=== PATIENT | female | born 1970 | race Caucasian/White ===

== ENCOUNTER 2022-11-15 06:45 | Outpatient (CLI) | payer OTHER, SELFPAY ==
--- NOTE | 2022-11-15 07:15 | CRLHL7_ITS ---
For Patients: As a result of the Century Cures Act, medical imaging exams and procedure reports are released immediately into your electronic medical record. You may view this report before your referring provider. If you have questions, please contact your health care provider. INDICATION: enlarged uterus COMPARISON: none TECHNIQUE: 2D packer scale and color Doppler images were acquired of the pelvis using a transabdominal and transvaginal approach. FINDINGS: Sonographic images demonstrate an enlarged size and mildly lobular outer contour of the uterus. Uterus measures 18.0 cm in length by 6.3 cm in AP diameter by 8.5 cm in transverse dimension. The myometrium has a diffusely heterogeneous echotexture. Multiple midline uterine fibroids are present which are intramural and submucosal, measuring 6.6 x 4.4 x 6.1 cm, 4.3 x 3.4 x 4.1 cm and 3.3 x 2.6 x 2.8 cm. The endometrial lining is displaced and measures 6 mm in composite thickness. The right ovary measures 2.8 x 2.3 x 2.5 cm in size and the left ovary measures 3.3 x 2.1 x 2.6 cm. The ovaries demonstrate normal arterial and venous blood flow on color Doppler analysis. There are no suspicious fluid collections within the cul-de-sac. IMPRESSION: Enlarged uterus with multiple fibroids measuring up to 6.6 cm. The fibroids are intramural and submucosal with displacement of the endometrium. Dictated by Akil Porter MD @ 11/15/2022 9:19:27 AM (Electronically Signed)
== END 2022-11-15 06:46 | disposition home or self-care (01) ==
PROVIDERS: Visit Provider Obstetrics & Gynecology
DX: N85.2 Hypertrophy of uterus (principal); D25.1 Intramural leiomyoma of uterus; D25.0 Submucous leiomyoma of uterus
CPT/HCPCS: 76830; 76856

== ENCOUNTER 2022-12-15 09:05 | Outpatient (CLI) | payer OTHER, SELFPAY | END 2022-12-15 09:06 | disposition home or self-care (01) | PROVIDERS: Visit Provider Family Medicine | DX: R73.9 Hyperglycemia, unspecified (principal) | CPT/HCPCS: 80053 ==

== ENCOUNTER 2022-12-20 16:36 | Inpatient (IN) | payer OTHER, SELFPAY ==
[2022-12-20] VITALS (24 sets, daily range): BP systolic 90–188; BP diastolic 62–113; PULSE 92–108; RESP 16–25; TEMP 36–37.5; O2SAT 83–99; BMI 49.6
--- NOTE | 2022-12-20 09:23 | P.PCN_ITS ---
Procedure Note Time Seen by Provider: 14:39 Date Seen: 12/20/22 Date of procedure: 12/20/22 Will [facility] bill your pro fee for this procedure?: Yes Procedure: DATE: 12/20/2022 REFERRING PHSICIAN/PROVIDER: Bandar Mast PREOPERATIVE DIAGNOSIS: 51-year-old with menometrorrhagia and enlarged uterus due to fibroids. POSTOPERATIVE DIAGNOSIS: Same. NAME OF PROCEDURE: Total abdominal hysterectomy. Bilateral salpingectomies. SURGEON: Swapna Matthew MD FLIGHT DYNAMICIST: Sade Moreau MD. ANESTHESIA: General endotracheal. TAPS block. COMPLICATIONS: Due to the patient's body habitus the surgical time was extended: total time = 3hr 35 minutes which is 1.5 - 2.0 longer than the usual time needed for an abdominal hysterectomy. ESTIMATED BLOOD LOSS: 300 ml URINE OUTPUT: 300 mL clear urine at the end of the procedure. IV FLUID: 1,500 mL DRAINS: Luo to gravity. FINDINGS: EUA: Uterine size is difficult to assess from pelvic and abdominal exam due to patient body habitus. BMI 49.7. On laparotomy: visualization was extremely challenging due to extensive abdominal organ adiposity. The uterus was 14-15 weeks size with a degenerated fundal, intramural fibroid and a posterior, lower uterine segment, intramural fibroid. Both tubes and ovaries appeared normal. The ureters were not visualized due to retroperitoneal adipose tissue. PROCEDURE: After obtaining informed consent, the patient was taken to the operating room where general anesthesia was obtained without difficulty. Prior to prepping and draping the patient, a TAPS block was placed by Dr. Jorje MDA. A pannus retractor /drape was placed. She was prepared and draped in the normal sterile fashion in the dorsal supine position. A Luo catheter was inserted sterilely into the bladder. A Pfannenstiel skin incision was made with a scalpel. This incision was carried down to the underlying layer of fascia with the Bovie. The fascia was incised in the midline and the incision extended laterally. The superior and inferior aspects of the fascial incision were grasped with Leigha clamps and the underlying rectus muscles dissected off sharply. The rectus muscles were in the midline. The underlying peritoneum was identified and entered bluntly. The peritoneal incision was extended in layers with Metzenbaum scissors. The patient was placed in some mild Trendelenburg positioning. The bowels were packed cephalad using 2 large moistened laparotomy sponges. The Slava O retractor was placed in the incision. This provided moderate visualization of the pelvis. The pelvis was inspected with the findings noted above. from the start of the procedure to placing the Slava, self- retaining retract took 37 minutes of time due to extra time needed to take down the patient's adipose tissue. In a typical procedure this would take 10-15 minutes. Tristen clamps were placed at the cornua bilaterally for traction. Neither ureter was identified due to excessive adipose tissue within the retroperitoneal space. Ureters could not even be palpated. The Left round ligament was doubly clamped with Leigha clamps, transected, and suture ligated with 0 Vicryl. The anterior leaf of the broad ligament was opened to the midline from the right side. Down to the level of the cervix. The left fallopian tube was elevated with [place] clamps. The fallopian tube was removed using the LigaSure dissecting forceps. The pedicles were formed starting at the fimbriated end of the tube and the tube was removed at the cornua. The left ovarian ligament was then isolated, clamped across with 2 Grace clamps, transected, and doubly suture ligated with 0 Vicryl. Hemostasis was observed. The uterine vessels were skeletonized on the left side. Attention was then turned to the right side of the uterus. The right round ligament was doubly clamped with Leigha clamps, transected and suture ligated with 0 Vicryl. The anterior leaf of the broad ligament was divided with bipolar cautery this was extended down to the level of the cervix. Attention was then turned to removing the right fallopian tube. The tube was grasped with [place] clamps. The LigaSure dissecting forceps was used to form sequential pedicles starting at the fimbriated, progressing toward the cornua. The tube was removed from the cornua.there were thick adhesions of the bladder reflection to the anterior wall of the lower uterine segment and cervix. The right ovarian ligament was isolated, clamped with 2 Grace clamps, transected and doubly suture ligated with 0 Vicryl suture. Hemostasis was noted. The uterine vessels were then skeletonized on the right side. the right uterine vessels were doubly clamped with curved and straight Grace clamps, transected and suture ligated with 0 Vicryl suture. There were additional small blood vessels within the peritoneum likely due to neovascularization from uterine fibroids, that were clamped with right angle clamps and suture ligated with 2-0 Vicryl. An additional curved Grace clamp was placed just inferior to the original uterine vessel pedicle to ligate all of the uterine blood vessels. The left uterine vessels were doubly clamped across with curved and straight Grace clamps, transected, and suture ligated. Excellent hemostasis was obtained. At this point the enlarged uterus was removed from the cervix using bipolar cautery to promote better visualization of the pelvis and cervix. The remaining cervical stump was grasped with 2 Leigha clamps. The bladder was dissected off with a combination of sharp dissection with a Metzenbaum scissors and blunt dissection with a sponge stick. There was significant bleeding noted from vaginal perforating blood vessels that were extremely difficult to identify due to the depth of the pelvis. No pulsing vessels were able to be identified. The area was cauterized with the Bovie and Gelfoam placed which slowed the bleeding. The remaining cardinal and uterosacral ligament attachments on both sides were clamped with straight Grace clamps adjacent to the lower uterine segment and cervix, transected and suture ligated with 0 Vicryl. Excellent hemostasis was obtained. Two Grace clamps were placed across the vaginal cuff angles. The uterus with attached cervix was then transected and passed off the field. The vaginal cuff angles were fixed with Grace stitches of 0 Vicryl. The intervening vaginal cuff was closed with [id number] sutures of 0 Vicryl. Was very difficult to identify the vaginal cuff due to the depth of the pelvis secondary to patient body habitus.The abdomen and pelvis were then copiously irrigated. Small bleeding vessels were isolated with DeBakey clamps and cauterized for hemostasis. there were was continued oozing from the anterior aspect of the vaginal canal between the the reflection and the vagina. This bleeding was suspicious for venous oozing due to dissection of adhesions during the hysterectomy to safely remove the cervix without damaging the bladder. This area was cauterized with bipolar cautery and Gelfoam soaked in bovine thrombin was then applied between the bladder and vagina. Hemostasis was noted after 5 minutes of holding pressure. Mani was then applied. All laparotomy sponges and instruments were then removed. The subfascial tissues were carefully inspected and hemostasis assured. The fascia was re-approximated in a running fashion with a looped 0 Maxon suture. The subcutaneous tissues were copiously irrigated and hemostasis obtained with bipolar cautery. The subcutaneous adipose layer was re-approximated in 4 layers using 3-0 plain gut interrupted sutures. This required 6 plain gut sutures. The skin was closed in a subcuticular fashion with 4-0 Monocryl. A silver dressing was applied. The patient tolerated the procedure well. Sponge, lap, needle, instrument counts were reported as correct x2. The patient was taken to recovery room awake and in stable condition. She received 3 g of IV Ancef preoperatively. The uterus was weighed at the conclusion of the procedure, weight was 287 g in the operating room. PATHOLOGY SPECIMEN(S): Uterus, cervix, bilateral fallopian tubes. Prior to hysterectomy the patient received 3gm IV Ancef. Time spent operatin hours 35 minutes for the hysterectomy. Anesthesia: GETA Pathology: specimen obtained, sent to pathology Condition: stable Disposition: floor
[2022-12-20 10:01] LABS: Hemoglobin* 13.7 gm/dL (12.0-16.0)
[2022-12-20 10:18] LABS: Creatinine* 0.7 mg/dL (0.5-1.5); Est. Creatinine Clearance* 83.95; Estimated Glomerular Filt Rate 106 ml/min
[2022-12-20 10:20] LABS: HCG Qualitative Serum* Negative (Negative)
[2022-12-20] MEDS: CEFAZOLIN 1 GM inj 3 GM IVP (10:40)
--- NOTE | 2022-12-20 11:44 | P.NB_ITS ---
Nerve Block Nerve Block Time Seen by Provider: 10:34 Date Seen: 12/20/22 Type of block requested by surgeon for post-operative analgesia: TAP Side: bilateral Time out performed: Yes Verification of patient name: Yes Verification of date of : Yes Site marking: site marked Name of person performing procedure: Jorje Continuous monitoring Was continuous monitoring of O2 sat, B/P, environmental monitoring specialist, recorded every 15 minutes?: Yes Procedure Checklist: sterile prep, needles and gloves Ultrasound guided. Images saved: Yes Medications given in 5ml increments after negative aspiration: Marcaine %: 0.25 mL: 30 Needle gauge: 20 and Exparel mL: 10 Patient tolerated procedure well: Yes Additional comments: Needle noted adjacent to nerve Block Charges Block Charge (with Pro Fee): TAP Bilateral Use of Ultrasound Machine for Block: Yes- US Guidance/pain block
--- NOTE | 2022-12-20 11:44 | W.ANESCHARGE ---
Anesthesia Charges Start Date/Time Anesthesia Start Date: 12/20/22 Anesthesia Start Time: 10:21 Stop Date/Time Anesthesia Stop Date: 12/20/22 Anesthesia Stop Time: 14:51
--- NOTE | 2022-12-20 11:53 | SUR.OPER ---
PATIENT QUESTIONS ANSWERED SATISFACTORILY PREOPERATIVELY. PATIENT BROUGHT TO OR #4 PER CART. Patient positioned supine on OR #4 bed for the intubation. Pt. then moved into the lithotomy position for the procedure. Perioperative team padded and tucked the arms at pt. side w/ sleds. ? Final approval of positioning by surgeon.
[2022-12-20] MEDS: THROMBIN (BOVINE) 5,000 UNIT VIAL 5000 UNIT TOPICAL (13:46)
[2022-12-20] MEDS: LACTATED RINGERS 1000 ML 1,000 ML 100 ML IV ×2 (13:46→13:50)
--- NOTE | 2022-12-20 14:17 | P.GYNPRC_ITS ---
Procedure Note Date Seen: 12/20/22 Procedure Details: PREOPERATIVE DIAGNOSIS: 51-year-old with menometrorrhagia and enlarged uterus due to fibroids. Morbid obesity. POSTOPERATIVE DIAGNOSIS: same PROCEDURE: Total laparoscopic hysterectomy. Bilateral salpingectomies.. SURGEON: Vipul. STRUCTURAL WORKER: Prieto ANESTHESIA: General endotracheal COMPLICATIONS: None ESTIMATED BLOOD LOSS: See operative report by Dr. Matthew. FINDINGS: Enlarged myomatous uterus, weight 287 g. Normal appearing tubes and ovaries bilaterally. PROCEDURE NOTE: Please see the operative report by Dr. Matthew for full details of the procedure. I was asked to assist. I was scrubbed in for the entire procedure until closure of the abdominal skin incision. I provided assistance with visualization and retraction, and with the hysterectomy and bilateral salpingectomies from the right side, as well as with hemostasis and closure of the vaginal cuff and fascia. This case was technically difficult and took additional time secondary to patient body habitus.
--- NOTE | 2022-12-20 14:48 | W.ANESCHARGE ---
Anesthesia Charges Start Date/Time Anesthesia Start Date: 12/20/22 Anesthesia Start Time: 10:21 Stop Date/Time Anesthesia Stop Date: 12/20/22 Anesthesia Stop Time: 14:51
[2022-12-20] MEDS: HYDROmorphone 0.5 mg/0.5 ml inj IVP ×3 (15:12→18:51)
[2022-12-20] MEDS: KETAMINE HCL 100 MG/ML inj 20 MG IV (15:20)
[2022-12-20] MEDS: fentaNYL 100 MCG/2 ML inj 50 MCG IVP ×3 (15:37→15:49)
--- NOTE | 2022-12-20 15:54 | SUR.PHASEI ---
Assessment completed by Robert Barroso, MUSEUM EDUCATOR verbal given to administer third dose of Fentanyl. MUSEUM EDUCATOR visited with patient education provided on importance of maintaining airway while still being able to treat pain. Approved transfer to center to continue recovery.
[2022-12-20] MEDS: LORazepam 2 MG/ML inj IVP (16:25)
[2022-12-20] MEDS: CYCLOBENZAPRINE HCL 10 MG TABLET PO (17:26)
--- NOTE | 2022-12-20 19:35 | PC.NURSE ---
Nursing Care Notes: [id number] Pt this shift arrived from OB unit after totally hysterectomy. Pt has no c/o pain abd, but 8/10 in R lateral shoulder, treated per eMAR. Moderate pain in left shoulder and back of neck. explained to pt about CO2 gases causes back strap pain. Pt states it feels more muscular than air. Massaged R shoulder and pt expressed relief with massage stating thats it, your hitting the spot. Worked on deep breathing with prolonged expiration to aid in relaxation. Tolerating fluids, no N/V. IV patent, Luo patent. Abdomen dressing CDI.
[2022-12-20] MEDS: ENOXAPARIN 40 MG/0.4 ML INJ SUBCUT (20:03)
[2022-12-20] MEDS: KETOROLAC 30 MG/ML inj IVP (20:03)
[2022-12-20] MEDS: BUDESONIDE 0.5 MG/2ML NEB NEB (20:04)
[2022-12-20] MEDS: SODIUM CHLORIDE 0.9 % (FLUSH) 10 ML SYRINGE IVF (20:05)
[2022-12-21] VITALS (7 sets, daily range): BP systolic 131–179; BP diastolic 78–103; PULSE 100–116; RESP 14–20; TEMP 36–36.5; O2SAT 95–98
[2022-12-21] MEDS: OXYCODONE 5 MG TABLET PO ×4 (00:05→21:30)
[2022-12-21] MEDS: SODIUM CHLORIDE 0.9 % (FLUSH) 10 ML SYRINGE IVF ×2 (00:06→02:00)
[2022-12-21] MEDS: LORazepam 2 MG/ML inj IVP (00:06)
[2022-12-21] MEDS: KETOROLAC 30 MG/ML inj IVP ×3 (01:59→15:26)
[2022-12-21 05:31] LABS: Hemoglobin* 13.7 gm/dL (12.0-16.0)
[2022-12-21] MEDS: ACETAMINOPHEN 325 MG TABLET 1000 MG PO (05:40)
--- NOTE | 2022-12-21 06:01 | PC.NURSE ---
Addendum entered by Bhargavi Park RN 12/22/22 15:17: Correction Dressing is a silver lined dressing! dressing C/D/I Original Note: [id number] Pt very tearful majority of shift, c/o R shoulder/arm pain, minimal relief with pain medications, encouraged patient to ambulate halls and educated on cause of this pain. Pt was able to sleep on and off during night, using home cpap. denies pain to abdomen, dressing with drainage noted throughout entire dressing, reinforcement not needed, remained intact. Luo removed at 0500, tip intact, pt tolerated well, she then ambulated the halls for the second time this shift. Pt is tolerating ambulating very well. Pt needs encouragement and reassurance, receptive to therapeutic communication. No vaginal bleeding observed. denies N/V and tolerating oral intake. pt tachy during vital checks, denies chest pain, lightheaded or dizziness.
[2022-12-21] MEDS: OMEPRAZOLE 20 MG CAPSULE DR 40 MG PO (06:19)
[2022-12-21] MEDS: BUDESONIDE 0.5 MG/2ML NEB NEB ×2 (09:03→21:32)
[2022-12-21] MEDS: hydroCHLOROthiazide 25 MG TABLET PO (09:03)
[2022-12-21] MEDS: LOSARTAN POTASSIUM 50 MG TABLET 25 MG PO (09:03)
--- NOTE | 2022-12-21 09:24 | P.GYNPN_ITS ---
DUST MOP MAKER - A/P Postoperative Procedures: Procedures Operation Date: 12/20/22 10:10 Actual Procedure Side Surgeon p Total Abdominal Hysterectomy, Bilateral Salpingectomy Swapna Matthew MD Postoperative day: 1 Postoperative status: doing well Postoperative plan: routine post-op care, ambulate, advance diet and other (Continue prophylactic Lovenox while in hospital. Continue to monitor blood pressure.) Time Spent With Patient Time: Total time spent is greater than 50% in coordination of care (as documented) at patient's floor/unit and/or counseling patient: Time with patient: 25 - 35 minutes DUST MOP MAKER- PN:Subj Post-Op Subjective Time Seen by Provider: 08:30 Date Seen: 12/21/22 Post Operative Details: Post-operative day number 1: status post total abdominal hysterectomy with bilateral salpingectomies Subjective: patient reports feeling better (Had some bilateral upper arm pain overnight), pain is well controlled and ambulating well DUST MOP MAKER-PN: Obj Exam Physical Exam: Vital signs: Temp Pulse Resp BP Pulse Ox O2 Del Method O2 Flow Rate 96.8 F L 115 H 18 179/99 H 97 Room Air, CPAP 0 12/21/22 03:00 12/21/22 03:00 12/21/22 03:00 12/21/22 03:00 12/21/22 03:00 12/21/22 03:00 12/21/22 03:00 Constitutional: Constitutional: no acute distress and morbidly obese Routine HEENT Exam: Head: Present normal inspection Routine Respiratory Exam: Respiratory: Absent respiratory distress Routine Abdominal Exam: Abdominal: Present soft; Absent tenderness Comments: Incision bandaged with silver Mepilex dressing. Routine Extremities Exam: Extremities: Present normal inspection Urinary Catheter Management: Urethral: Cath placed during this visit: yes, but has since been removed by the nurse Urethral indwelling: No Reason for continuing: surgical procedure Insertion date: 12/20/22 Removal date: 12/21/22 Removal time: 06:05 DUST MOP MAKER - PN: Obj Data Labs Labs: Laboratory Results - last 24 hr 12/20/22 12/21/22 09:52 05:25 Hgb 13.7 13.7 Creatinine 0.7 Estimated Creat Clear 83.95 Estimated GFR 106 HCG, Qual Negative Blood Type B Positive Antibody Screen NEGATIVE
--- NOTE | 2022-12-21 10:20 | P.IMCN_ITS ---
Date of Consult Patient: [facility] Patient Consult date: 12/21/22 Primary Care Provider: Swapna Matthew MD Consult Narrative Reason for consult: Medical management of comorbidities Narrative: Marita Rai is a 51 year old female who presented to the hospital on 12/20 for an elective abdominal hysterectomy with area manager for menorrhagia. There were no surgical or anesthetic complications noted during procedure. This morning, she notes feeling weak in bilateral upper extremities; no other concerns for hospitalist team. Marita's PCP is Dr. Checo Allen at [facility]. Past medical history significant for: long-COVID, mild intermittent asthma, essential HTN, peripheral neuropathy, GERD, chronic antibiotic use for recurrent breast infections History of blood clots: Yes, PE in 2019 (when she had COVID) Patient lives with and daughter. 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 Nonsmoker, no concerning ETOH use. Review of Systems Status of ROS: Reports: 10 or more systems reviewed and unremarkable except as noted in History and below [facility] Medical History (Updated 12/21/22 @ 15:31 by Yaima Jacinto MD) Anxiety (04/15/09) ?F41.9 - Anxiety disorder, unspecified (ICD-10) Asthma (04/15/09) ?J45.909 - Unspecified asthma, uncomplicated (ICD-10) Back pain ?M54.9 - Dorsalgia, unspecified (ICD-10) BMI 50.0-59.9, adult ?Z68.43 - Body mass index [BMI] 50.0-59.9, adult (ICD-10) Breast infection in female ?N61.0 - Mastitis without abscess (ICD-10) Chronic sinusitis ?J32.9 - Chronic sinusitis, unspecified (ICD-10) COVID-19 [place] manifesting chronic fatigue (06/2020) ?G93.32 - Myalgic encephalomyelitis/chronic fatigue syndrome (ICD-10) ?U09.9 - Post covid-19 condition, unspecified (ICD-10) Environmental allergies ?Z91.09 - Other allergy status, other than to drugs and biological substances (ICD-10) Fibroids ?D21.9 - Benign neoplasm of connective and other soft tissue, unspecified (ICD-10) GERD (gastroesophageal reflux disease) ?K21.9 - Gastro-esophageal reflux disease without esophagitis (ICD-10) Heel lesion ?L98.9 - Disorder of the skin and subcutaneous tissue, unspecified (ICD-10) Hypertension (06/19/13) ?I10 - Essential (primary) hypertension (ICD-10) Irritable bowel syndrome with diarrhea ?K58.0 - Irritable bowel syndrome with diarrhea (ICD-10) IUD (intrauterine device) in place ?Z97.5 - Presence of (intrauterine) contraceptive device (ICD-10) Menorrhagia with regular cycle ?N92.0 - Excessive and frequent menstruation with regular cycle (ICD-10) Peripheral neuropathy ?G62.9 - Polyneuropathy, unspecified (ICD-10) Pulmonary embolism (06/2020) ?I26.99 - Other pulmonary embolism without acute cor pulmonale (ICD-10) Sleep apnea ?G47.30 - Sleep apnea, unspecified (ICD-10) Surgical History (Updated 12/14/22 @ 14:58 by Gina Osuna) History of evacuation of hematoma (07/08/20) ?Z98.890 - Other specified postprocedural states (ICD-10) Hx of bilateral breast reduction surgery (2001) ?Z98.890 - Other specified postprocedural states (ICD-10) Status post delivery (2003) ?Z98.891 - History of uterine scar from previous surgery (ICD-10) Family History (Updated 12/15/22 @ 09:34 by Marian Fischer MD) Father Diabetes Heart valve problem, Onset Age: 65 Aunt Ovarian cancer Paternal Grandmother Stroke Diabetes Daughter Asthma Sister Asthma Social History (Updated 12/15/22 @ 09:35 by Marian Fischer MD) Narrative: , 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 Spouse/Partner: [name] Education: [] Occupation: currently unemployed, was a teacher Tobacco: lifetime nonsmoker E-cigarettes: no Alcohol: no Illicit/recreational drugs: no Safety concerns at home or work: no Dietary restriction(s): None Exercise: Has just started walking and using an elliptical machine in the last week as she was just okayed to start exercising by her [employer] team. Smoking Status: Never smoker Meds Home Medications and Allergies Home Medications Medication Instructions Recorded Confirmed Type albuterol 90 mcg/actuation aerosol 2 spray inhalation PRN 04/20/22 12/15/22 History inhaler hydrochlorothiazide 25 mg tablet 25 mg PO DAILY 04/20/22 12/15/22 History levonorgestrel 21 mcg/24 hours (8 1 device intrauterine ONCE 04/20/22 12/15/22 History yrs) 52 mg intrauterine device losartan 25 mg tablet 25 mg PO QDAY 04/20/22 12/15/22 History montelukast 10 mg tablet 10 mg PO .Bedtime 04/20/22 12/15/22 History nystatin 100,000 unit/gram topical 1 topical .2-3X/Day as needed PRN 04/20/22 12/15/22 History powder pantoprazole 40 mg tablet,delayed 40 mg PO QDAY 04/20/22 12/15/22 History release penicillin V potassium 500 mg 500 mg PO BID 04/20/22 12/15/22 History tablet budesonide 0.5 mg/2 mL suspension 0.5 mg inhalation BID 12/05/22 12/15/22 History for nebulization (Pulmicort) Bifidobacterium infantis 4 mg 4 mg PO QDAY 12/15/22 12/15/22 History capsule (Align) cholecalciferol (vitamin D3) 25 25 mcg PO QDAY 12/15/22 12/15/22 History mcg (1,000 unit) capsule clotrimazole 1 % topical cream 1 applic topical BID 12/15/22 12/15/22 History fexofenadine 60 mg tablet (Irish 60 mg PO BID 12/15/22 12/15/22 History Allergy) Allergies Allergy/AdvReac Type Severity Reaction Status Date / Time No Known Drug Allergies Allergy Verified 12/20/22 15:08 Exam Narrative: Exam Narrative: GEN: Alert and oriented, sitting comfortably in bedside chair HEENT: Normal external ears, EOMIs bilaterally, no scleral icterus CV: RRR, No concerning murmurs R: LCTA bilaterally without concerning wheezing, air movement adequate Ext: wwp, trace edema bilateral lower extremities, normal peripheral pulses bilateral upper extremities, normal wire taper strength and symmetric movement of bilateral upper extremities Skin: No concerning skin lesions or rashes on exposed skin Neuro: No focal deficits, no resting tremor, gait not observed Psych: Appropriate Const: Vital Signs, click to edit/add: Vital Signs - 24 hr 12/20/22 14:43 12/20/22 15:10 12/20/22 14:45 Temperature 99.5 F Pulse Rate 106 H 100 103 H Pulse Rate [Right Pulse Oximeter] Respiratory Rate 25 H 16 25 H Blood Pressure 115/62 143/80 H 101/64 Blood Pressure [Le ft Arm] Pulse Oximetry 97 99 98 Oxygen Delivery Me thod OxyMask OxyMask Oxygen Flow Rate 10 6 12/20/22 14:50 12/20/22 14:55 12/20/22 15:00 Temperature Pulse Rate 101 H 103 H 98 Pulse Rate [Right Pulse Oximeter] Respiratory Rate 25 H 24 16 Blood Pressure 99/73 90/70 124/95 H Blood Pressure [Le ft Arm] Pulse Oximetry 98 99 99 Oxygen Delivery Me thod OxyMask Oxygen Flow Rate 10 12/20/22 15:05 12/20/22 15:15 12/20/22 15:23 Temperature Pulse Rate 101 H 101 H 100 Pulse Rate [Right Pulse Oximeter] Respiratory Rate 16 20 20 Blood Pressure 145/98 H 139/74 139/98 H Blood Pressure [Le ft Arm] Pulse Oximetry 99 99 99 Oxygen Delivery Me thod OxyMask Room Air Oxygen Flow Rate 6 12/20/22 15:37 12/20/22 15:46 12/20/22 16:07 Temperature 99.4 F Pulse Rate 103 H 98 101 H Pulse Rate [Right Pulse Oximeter] Respiratory Rate 20 20 16 Blood Pressure 154/95 H 155/97 H Blood Pressure [Le ft Arm] 134/82 Pulse Oximetry 99 99 Oxygen Delivery Me thod Room Air Room Air Room Air Oxygen Flow Rate 6 12/20/22 16:07 12/20/22 16:22 12/20/22 16:37 Temperature Pulse Rate Pulse Rate [Right Pulse Oximeter] 101 H 99 99 Respiratory Rate 16 16 16 Blood Pressure Blood Pressure [Le ft Arm] 134/82 130/83 138/82 Pulse Oximetry 83 L 88 94 Oxygen Delivery Me thod Room Air Room Air Room Air Oxygen Flow Rate 2 1 12/20/22 16:52 12/20/22 17:07 12/20/22 17:15 Temperature Pulse Rate Pulse Rate [Right Pulse Oximeter] 101 H 103 H 102 H Respiratory Rate 18 18 18 Blood Pressure Blood Pressure [Le ft Arm] 142/85 H 149/94 H 135/84 Pulse Oximetry 96 98 97 Oxygen Delivery Me thod Room Air Room Air Room Air Oxygen Flow Rate 1 1 1 12/20/22 17:45 12/20/22 16:16 12/20/22 18:00 Temperature 98.3 F Pulse Rate Pulse Rate [Right Pulse Oximeter] 106 H 104 H Respiratory Rate 18 20 20 Blood Pressure Blood Pressure [Le ft Arm] 151/81 H 188/113 H Pulse Oximetry 97 97 97 Oxygen Delivery Me thod Room Air Room Air Room Air Oxygen Flow Rate 1 12/20/22 19:00 12/20/22 22:32 12/20/22 22:34 Temperature 97.8 F 96.8 F L Pulse Rate Pulse Rate [Right Pulse Oximeter] 102 H 108 H Respiratory Rate 20 18 18 Blood Pressure Blood Pressure [Le ft Arm] 148/106 H 146/91 H Pulse Oximetry 92 95 95 Oxygen Delivery Me thod Room Air Room Air CPAP Room Air CPAP Oxygen Flow Rate 0 12/21/22 03:00 12/21/22 07:48 12/21/22 07:48 Temperature 96.8 F L 97.7 F Pulse Rate Pulse Rate [Right Pulse Oximeter] 115 H 100 Respiratory Rate 18 20 20 Blood Pressure Blood Pressure [Le ft Arm] 179/99 H 131/89 Pulse Oximetry 97 97 97 Oxygen Delivery Me thod Room Air CPAP Room Air Room Air Oxygen Flow Rate 0 Labs Labs: Short CBC 12/21/22 Range/Units 05:25 Hgb 13.7 (12.0-16.0) gm/dL BMP 12/20/22 09:52 Creatinine 0.7 Assessment and Plan Assessment and plan (1) Upper extremity weakness: Problem comment: - ddx includes peripheral neuropathy, potential cervical source (placement from surgery), atypical rhabdo - elevated LFTs, likely not related, CK pending - exam reassuring - continued re-examination and follow-up - physical therapy evaluation ordered Status: Acute (2) Mild persistent asthma: Problem comment: - follows with pulmonology as an outpatient, no evidence of acute exacerbation at this time Status: Acute (3) Elevated LFTs: Problem comment: - noted on 12/21 labs. Unclear source, no abdominal pain, normal LFTs 6 days ago - Marita endorses a history of fatty liver disease, still has her gallbladder - abdominal ultrasound ordered to evaluate, follow LFTs Status: Acute (4) GERD (gastroesophageal reflux disease): Problem comment: Uses pantoprazole twice a day Status: Chronic (5) Peripheral neuropathy: Problem comment: Due to COVID Status: Chronic (6) Environmental allergies: Problem comment: Animal Dander uses Irish twice a day Status: Chronic (7) Pulmonary embolism: Problem comment: Complication from COVID2019 Status: Acute Plan - pain control and dispo management per Gynecologic surgery team - continue home medications - follow LFTs - continue Lovenox and SCDs for prophylaxis
[2022-12-21 12:18] LABS: Alanine Aminotransferase* 115 U/L (4-35); Albumin* 3.4 g/dL (3.3-5.0); Aspartate Amino Transferase* 618 U/L (12-35); Bilirubin Direct* 0.5 mg/dL (0.0-0.5); Total Protein* 6.5 g/dL (6.0-8.3)
[2022-12-21 12:19] LABS: Alkaline Phosphatase* 46 U/L (40-150); Magnesium* 1.9 mg/dL (1.5-2.6)
[2022-12-21 12:32] LABS: Blood Urea Nitrogen* 13 mg/dL (5-24); Calcium* 8.3 mg/dL (8.4-10.6); Carbon Dioxide* 23 mmol/L (20-32); Chloride* 102 mmol/L (96-114); Creatinine* 0.6 mg/dL (0.5-1.5); Est. Creatinine Clearance* 97.94; Estimated Glomerular Filt Rate 110 ml/min; Glucose* 119 mg/dL (60-115); Potassium* 4.5 mmol/L (3.6-5.1); Sodium* 131 mmol/L (135-149)
--- NOTE | 2022-12-21 13:30 | CRLHL7_ITS ---
For Patients: As a result of the Century Cures Act, medical imaging exams and procedure reports are released immediately into your electronic medical record. You may view this report before your referring provider. If you have questions, please contact your health care provider. Indication: Elevated liver function tests. Technique: Sonography of the abdomen was performed as above. Comparison: No prior relevant studies Findings: Substantially limited study due to patient related soft tissue attenuation factors and inability to position properly. The liver is echogenic with decreased sound through transmission probably due to fatty infiltration. Gallbladder wall thickness is top normal at 3 millimeters. Probable sludge but no calculi or pericholecystic fluid. No sonographic Power`s sign Bile duct is of top normal caliber at 7 millimeters. Poorly visualized. Pancreas not visualized Right kidney not visualized. Aorta not visualized. IVC not visualized. Impression: 1. Substantially limited study as above 2. Abnormal hepatic echogenicity probably due to steatosis 3. Limited visualization of the gallbladder. Probable sludge but no calculi, wall thickening or pericholecystic fluid. 4. Poorly seen bile duct but top normal size at 7 millimeters as visualized 5. Nonvisualization of the pancreas, right kidney, aorta and IVC due to technical factors Dictated by George Bardales MD @ 12/21/2022 3:04:15 PM (Electronically Signed)
[2022-12-21 15:39] LABS: Basophils Percent Auto 0.1 % (0.0-3.0); Eosinophils Percent Auto 0.2 % (0.0-7.0); Hematocrit 40.2 % (33.0-51.0); Hemoglobin* 13.1 gm/dL (12.0-16.0); Immature Granulocytes Pct Auto 0.2 %; Lymphocytes Percent Auto 13.3 % (20-44); Mean Corpuscular HGB Conc 33 gm/dL (32-36); Mean Corpuscular Hemoglobin 30 pg (26-34); Mean Corpuscular Volume 91 fL (80-100); Monocytes Percent Auto 6.5 % (0.0-11.0); Neutrophils Percent Auto 79.7 % (42.0-72.0); Platelet Count* 317 K/uL (140-440); RDW Coefficient of Variation % 13.6 % (11.5-15.5); Red Blood Count 4.42 m/uL (4.00-5.20); White Blood Count* 12.14 K/uL (4.50-11.00)
[2022-12-21 15:51] LABS: Slide Review Reflex No
--- NOTE | 2022-12-21 17:03 | PC.NURSE ---
Pt calm and cooperative during shift. Pt had pain in arms ranging from 7-6.5. Pt encouraged to walk halls and move arms as able. Pt walked halls x 2 during shift. See EMAR for pharmacological interventions. Pt?s dressing is dry and intact. Pt independent with walking. At times Pt needs help getting footrest in chair down or closer to edge of chair/bed to stand up.? ?
--- NOTE | 2022-12-21 18:42 | PC.NURSE ---
Pt started passing gas around 1800 during shift.
[2022-12-21 18:46] LABS: Creatine Kinase* 37960 U/L (41-117)
[2022-12-21] MEDS: IBUPROFEN 600 MG TABLET PO (21:29)
[2022-12-21] MEDS: ENOXAPARIN 40 MG/0.4 ML INJ SUBCUT (21:31)
[2022-12-21] MEDS: SIMETHICONE 80 MG TAB.CHEW 160 MG PO (21:51)
[2022-12-21] MEDS: ZOLPIDEM 5 MG TABLET PO (21:51)
[2022-12-22] MEDS: ACETAMINOPHEN 325 MG TABLET 1000 MG PO ×3 (01:34→16:24)
[2022-12-22] MEDS: OXYCODONE 5 MG TABLET PO ×2 (01:36→16:25)
[2022-12-22 03:00] VITALS: BP 143/81; PULSE 102; RESP 18; TEMP 36.3; O2SAT 93
[2022-12-22 05:49] LABS: Basophils Absolute Auto 0.04 K/uL (0.00-0.30); Basophils Percent Auto 0.4 % (0.0-3.0); Eosinophils Absolute Auto 0.06 K/uL (0.00-0.50); Eosinophils Percent Auto 0.6 % (0.0-7.0); Hematocrit 34.8 % (33.0-51.0); Hemoglobin* 11.5 gm/dL (12.0-16.0); Immature Granulocytes Abs Auto 0.01 K/uL (0.00-0.30); Immature Granulocytes Pct Auto 0.1 %; Lymphocytes Percent Auto 24.1 % (20-44); Mean Corpuscular HGB Conc 33 gm/dL (32-36); Mean Corpuscular Hemoglobin 30 pg (26-34); Mean Corpuscular Volume 91 fL (80-100); Monocytes Percent Auto 7.5 % (0.0-11.0); Neutrophils Absolute Auto 6.69 K/uL (1.7-7.0); Neutrophils Percent Auto 67.3 % (42.0-72.0); Platelet Count* 279 K/uL (140-440); RDW Coefficient of Variation % 13.7 % (11.5-15.5); Red Blood Count 3.83 m/uL (4.00-5.20); White Blood Count* 9.95 K/uL (4.50-11.00)
[2022-12-22 06:03] LABS: Slide Review Reflex No
[2022-12-22] MEDS: CYCLOBENZAPRINE HCL 10 MG TABLET PO ×2 (06:07→20:31)
[2022-12-22] MEDS: IBUPROFEN 600 MG TABLET PO ×4 (06:07→20:50)
[2022-12-22 06:16] LABS: Chloride* 98 mmol/L (96-114)
[2022-12-22 06:17] LABS: Albumin* 3.1 g/dL (3.3-5.0); Potassium* 3.2 mmol/L (3.6-5.1); Sodium* 133 mmol/L (135-149)
[2022-12-22 06:19] LABS: Creatinine* 0.7 mg/dL (0.5-1.5); Est. Creatinine Clearance* 83.95; Estimated Glomerular Filt Rate 106 ml/min
[2022-12-22 06:20] LABS: Alanine Aminotransferase* 106 U/L (4-35); Alkaline Phosphatase* 57 U/L (40-150); Aspartate Amino Transferase* 394 U/L (12-35); Bilirubin Direct* 0.2 mg/dL (0.0-0.5); Bilirubin Total* 0.5 mg/dL (0.1-1.5); Blood Urea Nitrogen* 11 mg/dL (5-24); Calcium* 7.5 mg/dL (8.4-10.6); Carbon Dioxide* 35 mmol/L (20-32); Glucose* 125 mg/dL (60-115); Total Protein* 6.1 g/dL (6.0-8.3)
[2022-12-22 07:03] LABS: Creatine Kinase* 22281 U/L (41-117)
[2022-12-22] MEDS: OMEPRAZOLE 20 MG CAPSULE DR 40 MG PO (07:22)
[2022-12-22 07:30] VITALS: BP 144/83; PULSE 93; RESP 18; TEMP 36.1; O2SAT 91
[2022-12-22] MEDS: 0.9 % SODIUM CHLORIDE 500 ML 500 ML IV (07:33)
[2022-12-22] MEDS: LOSARTAN POTASSIUM 50 MG TABLET 25 MG PO (08:33)
[2022-12-22] MEDS: hydroCHLOROthiazide 25 MG TABLET PO (08:33)
[2022-12-22] MEDS: 0.9 % SODIUM CHLORIDE 1000 ml 1,000 ML 125 ML IV ×2 (08:34→18:32)
[2022-12-22] MEDS: BUDESONIDE 0.5 MG/2ML NEB NEB ×2 (09:31→20:31)
[2022-12-22 11:00] VITALS: BP 115/70; PULSE 100; RESP 12; TEMP 36.6; O2SAT 93
[2022-12-22] MEDS: POTASSIUM CHLORIDE 10 MEQ CAPSULE ER 20 MEQ PO (12:12)
[2022-12-22] MEDS: CALCIUM GLUC 1,000MG/50 ML 1,000 MG/50 ML BAG 100 MG IVPB (12:12)
--- NOTE | 2022-12-22 12:16 | P.DS_ITS ---
Documented by User: Swapna Matthew MD 12/22/22 18:22 DS: Providers Provider Time Seen by Provider: 12:16 Date Seen: 12/22/22 Date of admission: 12/20/22 16:36 Primary care physician: MD Charles Rodriguez MD Admitting Clinician: Swapna Matthew MD Consults: 12/20/22 16:57 Consult to Physician CONS Routine Comment: Consulting Provider: Radames Yang Has provider been notified: Yes 12/21/22 15:38 Consult to Occupational Therapy CONS Routine Comment: Reason(s) for OT Consult:: ADLs Prior to Discharge Any Restrictions?:: No Restrictions Comment: patient unable to complete ADLs 2/2 arm pain Attending Physician on discharge: Swapna Matthew MD DS: Diagnosis Discharge Diagnosis (1) S/P total abdominal hysterectomy: Status: Acute Problem details: Treat fibroids and menometrorrhagia (2) Status post bilateral salpingectomy: Status: Acute (3) Steatosis, liver: Status: Acute (4) Hypocalcemia: Status: Acute Problem details: - replace and followup (5) Hypokalemia: Status: Acute Problem details: - replace and follow (6) Rhabdomyolysis: Status: Acute Problem details: Due to lack of anesthesia metabolism. 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 This surgery was complicated by limited visualization secondary to enlarged, fibroid uterus and patient body habitus (BMI 49.7). Postoperative course was complicated by bilateral shoulder pain and stiffness. LFT's were noted to be elevated on POD#1: AST 618, ALT 115 Creat Kinase 37,960. Abdominal USN was performed which showed: 1. Substantially limited study as above 2. Abnormal hepatic echogenicity probably due to steatosis 3. Limited visualization of the gallbladder. Probable sludge but no calculi, wall thickening or pericholecystic fluid. 4. Poorly seen bile duct but top normal size at 7 millimeters as visualized 5. Nonvisualization of the pancreas, right kidney, aorta and IVC due to technical factors On POD#2: AST 394, ALT 106 and Creat Kinase 22,281: 1L IVF ordered by Dr. Jacinto (Hospitalist) and the patient seen by physical therapy. Suspect rhabomyolysis due to incomplete metabolism of anesthesia secondary to liver steatosis. POD#2: hypokalemia with potassium 3.2, hypocalcemia 7.5: Replacement ordered. Replacement for potassium, IV replacement for calcium. Seen by Occupational therapy on postop day 2 due to bilateral shoulder pain and stiffness secondary to rhabdomyolysis. Patient extremely anxious about being discharged home and was encouraged that she is doing extremely well and her clinical course has been improving quickly. Reviewed that her shoulder pain and stiffness will take few weeks to return to normal but she will continue to improve every day. Discussed outpatient occupational therapy: I will order outpatient OT per inpatient OT recommendations. From a gynecologic point of view she is ready for discharge home. The patient has significant anxiety due to feeling that her shoulders are not working like normal. I gave encouragement as she is able to eat, ambulate, pass gas, urinate, manage pain with PO medications. Will have an appointment in the [facility] on Monday/Monday/Monday next week to check her incision. Will have her do OT appointments after discharge and check electrolytes, LFT's and CK at her postop visit with me on 01/05/2023. Hemoglobin 12/20/22 13.7; 12/22/22 11.5. After discussing discharge with the patient on 12/22/2022 she feels nervous about going home today as her shoulders continue to have limited range of motion although it has improved since this morning. I will be rechecking comprehensive metabolic panel and creatinine kinase tomorrow. I will not recheck a CBC as her blood count is normal post hysterectomy. I will have 1 of my partners see the patient in the morning: Dr. Albert. The patient's prescriptions have been sent to her pharmacy and the hospitalist requested outpatient occupational therapy appointments. I reviewed with the patient that the Occupational therapy clinic will contact her after she is discharged to help her make those appointments. DISCHARGE Vital Signs: See EMR Discharge Examination GENERAL APPEARANCE: normal affect, alert, no distress MOOD: appropriate CHEST: clear to auscultation HEART: regular rate and rhythm ABDOMEN: Obese, mild-moderate distention, non-tender. Normal bowel sounds throughout. No CVA or Flank tenderness. PERINEUM: no edema of the perineum EXTREMITIES: Limited range of motion in both upper extremities no pain to palpation. Left shoulder more limited than right. BLE: SCD's and TEDS in place. INCISION: Silver-containing dressing in place: dry and intact. Time Spent with Patient Time attestation: Total time spent providing and/or coordinating discharge services: Time spent: Greater than 30 minutes Specific discharge activities: See discharge summary. 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 - Exam Physical Exam: Vital signs: Temp Pulse Resp BP Pulse Ox O2 Del Method O2 Flow Rate 97.9 F 100 12 115/70 93 Room Air 0 12/22/22 11:00 12/22/22 11:00 12/22/22 11:00 12/22/22 11:00 12/22/22 11:00 12/22/22 11:00 12/21/22 03:00 GLUING MACHINE OPERATOR ELECTRONIC - DS: Data Data Completed and Pending Labs on day of discharge: Labs from last 24 hours 12/22/22 12/21/22 12/21/22 05:35 15:34 11:10 WBC 9.95 12.14 H RBC 3.83 L 4.42 Hgb 11.5 L 13.1 Hct 34.8 40.2 MCV 91 91 MCH 30 30 MCHC 33 33 RDW Coeff of [place] 13.7 13.6 Plt Count 279 317 Neut % (Auto) 67.3 79.7 H Lymph % (Auto) 24.1 13.3 L [place] % (Auto) 7.5 6.5 Eos % (Auto) 0.6 0.2 Baso % (Auto) 0.4 0.1 Neut # (Auto) 6.69 9.70 H Lymph # (Auto) 2.40 1.60 [place] # (Auto) 0.70 0.80 Eos # (Auto) 0.06 0.00 Baso # (Auto) 0.04 0.00 Sodium 133 L 131 L Potassium 3.2 L 4.5 Chloride 98 102 Carbon Dioxide 35 H 23 BUN 11 13 Creatinine 0.7 0.6 Estimated Creat Clear 83.95 97.94 Estimated GFR 106 110 Glucose 125 H 119 H Calcium 7.5 L 8.3 L Magnesium 1.9 Total Bilirubin 0.5 1.0 Direct Bilirubin 0.2 0.5 AST 394 H 618 H ALT 106 H 115 H Alkaline Phosphatase 57 46 Total Creatine Kinase 11380 H 84595 H Total Protein 6.1 6.5 Albumin 3.1 L 3.4 Procedures Procedures: Procedures Operation Date: 12/20/22 10:10 Actual Procedure Side Surgeon p Total Abdominal Hysterectomy, Bilateral Salpingectomy Swapna Matthew MD Complications: other (Rhabomyolysis resulting in B shoulder pain and stiffness, hypokalemia and hypocalcemia.) Additional Comments Additional comments: The patient requested holding off on discharge home until 12/23/2022 due to concerns for limited mobility of her shoulders. Discharge Plan Discharge Disposition: Home, Self-Care Date of Admission: 12/20/22 16:36 Attending Provider on Discharge: Layne Coffey Consulting Providers: Radames Yang Berit L Primary Care Provider: Swapna Matthew Condition: Stable Anticipated Discharge Date/Time: 12/23/22 11:00 Discharge Medications: New cyclobenzaprine 10 mg Tablet 10 mg PO TID PRNQty: 30 0RF docusate sodium 100 mg Capsule 100 mg PO BID PRN (Reason: Constipation) Qty: 100 0RF ibuprofen 600 mg Tablet 600 mg PO Q6H Qty: 30 0RF oxycodone 5 mg Tablet 5 mg PO 3XD PRN (Reason: Moderate Pain) Qty: 21 0RF Continued levonorgestrel 20 mcg/24 hours (7 yrs) 52 mg intrauterine device 1 device intrauterine ONCE Rx Instructions: as a single dose albuterol 90 mcg/actuation aerosol 2 spray inhalation PRN hydrochlorothiazide 25 mg tablet 25 mg PO DAILY montelukast 10 mg tablet 10 mg PO .Bedtime nystatin 100,000 unit/gram powder 1 topical .2-3X/Day as needed PRN losartan 25 mg tablet 25 mg PO QDAY pantoprazole 40 mg tablet,delayed release (DR/EC) 40 mg PO QDAY cholecalciferol (vitamin D3) 25 mcg (1,000 unit) capsule 25 mcg PO QDAY Align 4 mg capsule 4 mg PO QDAY fexofenadine [Irish Allergy] 60 mg tablet 60 mg PO BID clotrimazole 1 % cream 1 applic topical BID budesonide [Pulmicort] 0.5 mg/2 mL suspension for nebulization 0.5 mg inhalation BID Discontinued penicillin V potassium 500 mg tablet 500 mg PO BID peg 3350-electrolytes [Golytely] 236-22.74-6.74 -5.86 gram recon soln 240 ml PO Q10M Qty: 4000 0RF Rx Instructions: until fecal effluent is clear Discharge Orders: Discharge Order (Routine); Ordered 12/23/22 Ordered By: Layne Coffey Patient Education: Rhabdomyolysis (DC), Hysterectomy (DC) Additional Instructions: Discharge instructions were reviewed with the patient including signs and symptoms of infection and medications to use for pain. Symptoms to report to doctor: Drainage or increase in redness around your incision Bleeding that is bright red and saturates a liner/thin pad. Pain not relieved by prescribed medication Fever above 100.4 degrees Fahrenheit Foul vaginal odor Decrease in urination or painful, frequent urinating Chest pain Shortness of breath Tenderness or pain with redness and/swelling in the calf(s) of your leg ACTIVITY RESTRICTIONS: Nothing per Vagina: No intercourse, No tampons, No douchin weeks Do not drive: While taking narcotic pain medication (1-2 weeks). Do not soak the incision in water: 2 weeks. Lifting Restriction: 15 lbs for 6 weeks No strenuous, high-impact or core exercise: 6 weeks. Off Work or School: at least 6 weeks NO RESTRICTION FOR THE FOLLOWING: Showering Walking or other low impact exercise. Going up/down stairs FOLLOW-UP APPOINTMENTS Occupational Therapy: The clinic will contact the patient after she is discharged to schedule outpatient OT appointments. Removal of dressing and incision check by an RN or MD: on // in the [facility] 12/26-12/28/2022. Postoperative visits with Swapna Matthew MD: Initial postop visit: Already scheduled on 01/05/2023. We will check a Creatinine Kinase, electrolytes and liver function tests at that visit. Final postop visit: in 6 weeks. Activity Level: Activity as Tolerated Activity Detail: Nothing vaginally for at least 6 weeks, no heavy lifting more than 15-20 pounds for 6 weeks as well. Discharge Diet: Heart Healthy (2 gm sodium, low fat) Follow Up Appointments: Marian Fischer [Other] Swapna Matthew MD [Primary Care Provider] - Forms: [facility] Info Instructions Documented by User: Layne Coffey MD 12/23/22 09:34 DS: Providers Provider Date Seen: 12/23/22 Attending Physician on discharge: Layne Coffey MD Date of Discharge: 12/23/22 DS: Diagnosis Discharge Diagnosis (1) S/P total abdominal hysterectomy: Status: Acute Problem details: Treat fibroids and menometrorrhagia (2) Status post bilateral salpingectomy: Status: Acute (3) Steatosis, liver: Status: Acute (4) Hypocalcemia: Status: Acute Problem details: - replace and followup (5) Hypokalemia: Status: Acute Problem details: - replace and follow (6) Rhabdomyolysis: Status: Acute Problem details: Due to lack of anesthesia metabolism. 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 This surgery was complicated by limited visualization secondary to enlarged, fibroid uterus and patient body habitus (BMI 49.7). Postoperative course was complicated by bilateral shoulder pain and stiffness. LFT's were noted to be elevated on POD#1: AST 618, ALT 115 Creat Kinase 37,960. Abdominal USN was performed which showed: 1. Substantially limited study as above 2. Abnormal hepatic echogenicity probably due to steatosis 3. Limited visualization of the gallbladder. Probable sludge but no calculi, wall thickening or pericholecystic fluid. 4. Poorly seen bile duct but top normal size at 7 millimeters as visualized 5. Nonvisualization of the pancreas, right kidney, aorta and IVC due to technical factors On POD#2: AST 394, ALT 106 and Creat Kinase 22,281: 1L IVF ordered by Dr. Jacinto (Hospitalist) and the patient seen by physical therapy. Suspect rhabomyolysis due to incomplete metabolism of anesthesia secondary to liver steatosis. POD#2: hypokalemia with potassium 3.2, hypocalcemia 7.5: Replacement ordered. Replacement for potassium, IV replacement for calcium. Seen by Occupational therapy on postop day 2 due to bilateral shoulder pain and stiffness secondary to rhabdomyolysis. Patient extremely anxious about being discharged home and was encouraged that she is doing extremely well and her clinical course has been improving quickly. Reviewed that her shoulder pain and stiffness will take few weeks to return to normal but she will continue to improve every day. Discussed outpatient occupational therapy: I will order outpatient OT per inpatient OT recommendations. From a gynecologic point of view she is ready for discharge home. The patient has significant anxiety due to feeling that her shoulders are not working like normal. I gave encouragement as she is able to eat, ambulate, pass gas, urinate, manage pain with PO medications. Will have an appointment in the [facility] on Monday/Monday/Monday next week to check her incision. Will have her do OT appointments after discharge and check electrolytes, LFT's and CK at her postop visit with me on 01/05/2023. Hemoglobin 12/20/22 13.7; 12/22/22 11.5. After discussing discharge with the patient on 12/22/2022 she feels nervous about going home today as her shoulders continue to have limited range of motion although it has improved since this morning. I will be rechecking comprehensive metabolic panel and creatinine kinase tomorrow. I will not recheck a CBC as her blood count is normal post hysterectomy. I will have 1 of my partners see the patient in the morning: Dr. Albert. The patient's prescriptions have been sent to her pharmacy and the hospitalist requested outpatient occupational therapy appointments. I reviewed with the patient that the Occupational therapy clinic will contact her after she is discharged to help her make those appointments. Update for 12/23/22: Patient is feeling more confident today about going home. Pain is improved, still limited range of motion of upper extremities, but pain is significantly improved. Lab work this morning, AST: 277, ALT:98. CK: 16,039 from 22,281. Labs improving, patient was reassured to hear this. Patient would like to remove silver dressing on her own at home and have a virtual visit for follow up of incision. Will send message to triage to help coordinate. Reviewed case with Hospitalist and Dr. Schmitz is in agreement with discharge plan. DISCHARGE Vital Signs: See EMR Discharge Examination GENERAL APPEARANCE: normal affect, alert, no distress MOOD: appropriate CHEST: clear to auscultation HEART: regular rate and rhythm ABDOMEN: Obese, mild-moderate distention, non-tender. Normal bowel sounds throughout. No CVA or Flank tenderness. PERINEUM: no edema of the perineum EXTREMITIES: Limited range of motion in both upper extremities no pain to palpation. Left shoulder more limited than right. BLE: SCD's and TEDS in place. INCISION: Silver-containing dressing in place: dry and intact. Discharge Plan Discharge Disposition: Home, Self-Care Date of Admission: 12/20/22 16:36 Attending Provider on Discharge: Layne Coffey Consulting Providers: Radames Yang Berit L Primary Care Provider: Swapna Matthew Condition: Stable Anticipated Discharge Date/Time: 12/23/22 11:00 Discharge Medications: New cyclobenzaprine 10 mg Tablet 10 mg PO TID PRNQty: 30 0RF docusate sodium 100 mg Capsule 100 mg PO BID PRN (Reason: Constipation) Qty: 100 0RF ibuprofen 600 mg Tablet 600 mg PO Q6H Qty: 30 0RF oxycodone 5 mg Tablet 5 mg PO 3XD PRN (Reason: Moderate Pain) Qty: 21 0RF Continued levonorgestrel 20 mcg/24 hours (7 yrs) 52 mg intrauterine device 1 device intrauterine ONCE Rx Instructions: as a single dose albuterol 90 mcg/actuation aerosol 2 spray inhalation PRN hydrochlorothiazide 25 mg tablet 25 mg PO DAILY montelukast 10 mg tablet 10 mg PO .Bedtime nystatin 100,000 unit/gram powder 1 topical .2-3X/Day as needed PRN losartan 25 mg tablet 25 mg PO QDAY pantoprazole 40 mg tablet,delayed release (DR/EC) 40 mg PO QDAY cholecalciferol (vitamin D3) 25 mcg (1,000 unit) capsule 25 mcg PO QDAY Align 4 mg capsule 4 mg PO QDAY fexofenadine [Irish Allergy] 60 mg tablet 60 mg PO BID clotrimazole 1 % cream 1 applic topical BID budesonide [Pulmicort] 0.5 mg/2 mL suspension for nebulization 0.5 mg inhalation BID Discontinued penicillin V potassium 500 mg tablet 500 mg PO BID peg 3350-electrolytes [Golytely] 236-22.74-6.74 -5.86 gram recon soln 240 ml PO Q10M Qty: 4000 0RF Rx Instructions: until fecal effluent is clear Discharge Orders: Discharge Order (Routine); Ordered 12/23/22 Ordered By: Layne Coffey Patient Education: Rhabdomyolysis (DC), Hysterectomy (DC) Additional Instructions: Discharge instructions were reviewed with the patient including signs and symptoms of infection and medications to use for pain. Symptoms to report to doctor: Drainage or increase in redness around your incision Bleeding that is bright red and saturates a liner/thin pad. Pain not relieved by prescribed medication Fever above 100.4 degrees Fahrenheit Foul vaginal odor Decrease in urination or painful, frequent urinating Chest pain Shortness of breath Tenderness or pain with redness and/swelling in the calf(s) of your leg ACTIVITY RESTRICTIONS: Nothing per Vagina: No intercourse, No tampons, No douchin weeks Do not drive: While taking narcotic pain medication (1-2 weeks). Do not soak the incision in water: 2 weeks. Lifting Restriction: 15 lbs for 6 weeks No strenuous, high-impact or core exercise: 6 weeks. Off Work or School: at least 6 weeks NO RESTRICTION FOR THE FOLLOWING: Showering Walking or other low impact exercise. Going up/down stairs FOLLOW-UP APPOINTMENTS Occupational Therapy: The clinic will contact the patient after she is discharged to schedule outpatient OT appointments. Removal of dressing and incision check by an RN or MD: on // [facility] 12/26-12/28/2022. Postoperative visits with Swapna Matthew MD: Initial postop visit: Already scheduled on 01/05/2023. We will check a Creatinine Kinase, electrolytes and liver function tests at that visit. Final postop visit: in 6 weeks. Activity Level: Activity as Tolerated Activity Detail: Nothing vaginally for at least 6 weeks, no heavy lifting more than 15-20 pounds for 6 weeks as well. Discharge Diet: Heart Healthy (2 gm sodium, low fat) Follow Up Appointments: Marian Fischer [Other] Swapna Matthew MD [Primary Care Provider] - [facility]: [facility] Info Inst[facility]
--- NOTE | 2022-12-22 14:25 | P.IMPN_ITS ---
Progress Note: A&P Assessment and plan (1) Elevated CK: Problem details: - likely source of arm pain, source unclear (iatrogenic from anesthesia vs idiopathic) - IVFs, continue to follow, improving subjectively and objectively - occupational therapy following for arm strengthening exercises Status: Acute (2) Elevated LFTs: Problem details: - noted on 12/21 labs. Asymptomatic, reassuring ultrasound - Marita endorses a history of fatty liver disease, still has her gallbladder Status: Acute (3) Hypocalcemia: Problem details: - replace and followup Status: Acute (4) Hypokalemia: Problem details: - replace and follow Status: Acute (5) Mild persistent asthma: Problem details: - follows with pulmonology as an outpatient, no evidence of acute exacerbation at this time Status: Acute (6) S/P total abdominal hysterectomy: Problem details: Treat fibroids and menometrorrhagia Status: Acute Plan - continue IVFs, follow LFTs and CK through d/c and in outpatient f/u - rest of comorbidities stable at this time - postoperative pain management and prophylaxis per gynecological surgery team Subjective Date Seen: 12/22/22 Interval history: Marita's arm pain has improved, still present. Her CK and LFTs are improving. She has no abdominal pain and is tolerating p.o. intake. Vital signs remain stable. 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 Skin: No concerning skin lesions or rashes on exposed skin Neuro: No focal deficits Psych: Appropriate Const: Vital Signs, click to edit/add: Vital Signs - 24 hr 12/21/22 15:17 12/21/22 15:17 12/21/22 15:15 Temperature 97.0 F L Pulse Rate [Pulse Oximeter] Pulse Rate [Right Pulse Oximeter] 107 H 107 H Respiratory Rate 14 14 Blood Pressure [Le ft Arm] 151/78 H Pulse Oximetry 95 95 Oxygen Delivery Me thod Room Air Room Air 12/21/22 19:00 12/21/22 23:00 12/21/22 23:00 Temperature 97.4 F L Pulse Rate [Pulse Oximeter] 110 H Pulse Rate [Right Pulse Oximeter] 116 H Respiratory Rate 20 Blood Pressure [Le ft Arm] 172/103 H Pulse Oximetry 98 Oxygen Delivery Me thod Room Air Room Air 12/21/22 23:00 12/22/22 03:00 12/22/22 07:30 Temperature 97.3 F L 97.0 F L Pulse Rate [Pulse Oximeter] 102 H 93 Pulse Rate [Right Pulse Oximeter] Respiratory Rate 18 18 18 Blood Pressure [Le ft Arm] 143/81 H 144/83 H Pulse Oximetry 93 91 Oxygen Delivery Me thod Room Air CPAP Room Air Room Air 12/22/22 07:30 12/22/22 07:30 12/22/22 11:00 Temperature 97.9 F Pulse Rate [Pulse Oximeter] 93 100 Pulse Rate [Right Pulse Oximeter] Respiratory Rate 18 12 Blood Pressure [Le ft Arm] 115/70 Pulse Oximetry 91 93 Oxygen Delivery Me thod Room Air Room Air Labs Labs: Laboratory Results - last 24 hr 12/21/22 12/21/22 12/22/22 11:10 15:34 05:35 WBC 12.14 H 9.95 RBC 4.42 3.83 L Hgb 13.1 11.5 L Hct 40.2 34.8 MCV 91 91 MCH 30 30 MCHC 33 33 RDW Coeff of [place] 13.6 13.7 Plt Count 317 279 Neut % (Auto) 79.7 H 67.3 Lymph % (Auto) 13.3 L 24.1 [place] % (Auto) 6.5 7.5 Eos % (Auto) 0.2 0.6 Baso % (Auto) 0.1 0.4 Neut # (Auto) 9.70 H 6.69 Lymph # (Auto) 1.60 2.40 [place] # (Auto) 0.80 0.70 Eos # (Auto) 0.00 0.06 Baso # (Auto) 0.00 0.04 Sodium 133 L Potassium 3.2 L Chloride 98 Carbon Dioxide 35 H BUN 11 Creatinine 0.7 Estimated Creat Clear 83.95 Estimated GFR 106 Glucose 125 H Calcium 7.5 L Total Bilirubin 0.5 Direct Bilirubin 0.2 AST 394 H ALT 106 H Alkaline Phosphatase 57 Total Creatine Kinase 00252 H 42447 H Total Protein 6.1 Albumin 3.1 L
--- NOTE | 2022-12-22 14:44 | PC.NURSE ---
Pt calm and cooperative during shift. Pt had pain in arms ranging from 6.5. Pt slept comfortably most shift. Pt reported she is relaxed and has been able to sleep well during shift. Pt encouraged to walk halls and move arms as able.? Pt?s dressing is dry and intact. Pt independent with walking. At times Pt needs help getting footrest in chair down or closer to edge of chair/bed to stand up. Pt received a bolus in early AM and was started on IV fluids. Pt to discharge home with and daughter on 12/23.?
--- NOTE | 2022-12-22 14:51 | PM.GYNPNPO ---
GYROSCOPIC INSTRUMENT MECHANIC - A/P Assessment and plan (1) S/P total abdominal hysterectomy: Problem details: Treat fibroids and menometrorrhagia Status: Acute Assessment and Plan: 1. No evidence of postoperative it anemia. 2. Hypokalemia and hypocalcemia both replaced. 3. The patient is planning on staying in the hospital and till tomorrow morning. 4. Repeat comprehensive metabolic panel and creatinine kinase tomorrow. 5. Plan OT patient appointments to treat shoulder pain and limited mobility. (2) Status post bilateral salpingectomy: Status: Acute (3) Steatosis, liver: Status: Acute (4) Hypocalcemia: Problem details: - replace and followup Status: Acute (5) Hypokalemia: Problem details: - replace and follow Status: Acute (6) Rhabdomyolysis: Problem details: Due to lack of anesthesia metabolism. Status: Acute (7) Bilateral shoulder pain: Status: Acute Postoperative Procedures: Procedures Operation Date: 12/20/22 10:10 Actual Procedure Side Surgeon p Total Abdominal Hysterectomy, Bilateral Salpingectomy Swapna Matthew MD Time Spent With Patient Time: Total time spent is greater than 50% in coordination of care (as documented) at patient's floor/unit and/or counseling patient: Time with patient: 25 - 35 minutes GYROSCOPIC INSTRUMENT MECHANIC- PN:Subj Post-Op Subjective Time Seen by Provider: 14:00 Date Seen: 12/22/22 Interval history: Marita's arm pain has improved, still present. Her CK and LFTs are improving. She has no abdominal pain and is tolerating p.o. intake. Vital signs remain stable. Post Operative Details: Post-operative day number 2: status post total abdominal hysterectomy, bilateral salpingectomy. Complicated by postoperative rhabdomyolysis cis dishes for anesthesia affect. Occupational therapy saw the patient today and recommended outpatient OT appointments. Her calcium and potassium were both low and replacement ordered. I will be rechecking comprehensive metabolic panel and creatinine kinase tomorrow. Patient did not feel comfortable being discharged today due to continued limited mobility of her shoulders. Subjective: pain is well controlled, ambulating well, voiding without difficulty, patient is tolerating oral intake and passing flatus GYROSCOPIC INSTRUMENT MECHANIC-PN: Obj Exam Physical Exam: Vital signs: Temp Pulse Resp BP Pulse Ox O2 Del Method O2 Flow Rate 97.9 F 100 12 115/70 93 Room Air 0 12/22/22 11:00 12/22/22 11:00 12/22/22 11:00 12/22/22 11:00 12/22/22 11:00 12/22/22 11:00 12/21/22 03:00 Narrative: GENERAL APPEARANCE: normal affect, alert, no distress MOOD: appropriate CHEST: clear to auscultation HEART: regular rate and rhythm ABDOMEN: Obese, mild-moderate distention, non-tender. Normal bowel sounds throughout. No CVA or Flank tenderness. PERINEUM: no edema of the perineum EXTREMITIES: Limited range of motion in both upper extremities no pain to palpation. Left shoulder more limited than right. BLE: SCD's and TEDS in place. INCISION: Silver-containing dressing in place: dry and intact. Urinary Catheter Management: Urethral: Cath placed during this visit: yes, but has since been removed by the nurse Urethral indwelling: No Reason for continuing: surgical procedure Insertion date: 12/20/22 Removal date: 12/21/22 Removal time: 06:05 GYROSCOPIC INSTRUMENT MECHANIC - PN: Obj Data Labs Labs: Laboratory Results - last 24 hr 12/21/22 12/21/22 12/22/22 11:10 15:34 05:35 WBC 12.14 H 9.95 RBC 4.42 3.83 L Hgb 13.1 11.5 L Hct 40.2 34.8 MCV 91 91 MCH 30 30 MCHC 33 33 RDW Coeff of [place] 13.6 13.7 Plt Count 317 279 Neut % (Auto) 79.7 H 67.3 Lymph % (Auto) 13.3 L 24.1 [place] % (Auto) 6.5 7.5 Eos % (Auto) 0.2 0.6 Baso % (Auto) 0.1 0.4 Neut # (Auto) 9.70 H 6.69 Lymph # (Auto) 1.60 2.40 [place] # (Auto) 0.80 0.70 Eos # (Auto) 0.00 0.06 Baso # (Auto) 0.00 0.04 Sodium 133 L Potassium 3.2 L Chloride 98 Carbon Dioxide 35 H BUN 11 Creatinine 0.7 Estimated Creat Clear 83.95 Estimated GFR 106 Glucose 125 H Calcium 7.5 L Total Bilirubin 0.5 Direct Bilirubin 0.2 AST 394 H ALT 106 H Alkaline Phosphatase 57 Total Creatine Kinase 42588 H 46384 H Total Protein 6.1 Albumin 3.1 L
[2022-12-22 15:00] VITALS: BP 132/88; PULSE 99; RESP 18; TEMP 36.6; O2SAT 96
[2022-12-22] MEDS: ONDANSETRON 2 MG/ML inj 4 MG IVP (15:32)
[2022-12-22] MEDS: SODIUM CHLORIDE 0.9 % (FLUSH) 10 ML SYRINGE IVF (15:33)
[2022-12-22] MEDS: DOCUSATE SODIUM 100 MG CAPSULE PO (15:37)
[2022-12-22 19:00] VITALS: BP 154/94; PULSE 105; O2SAT 96
[2022-12-22] MEDS: ENOXAPARIN 40 MG/0.4 ML INJ SUBCUT (20:32)
--- NOTE | 2022-12-22 22:58 | PC.NURSE ---
Nursing Care Hours: [id number] Pt this shift crying, anxious, and frustrated with pain upon entering room. Pt states i feel like I am crazy, or that you guys think that I am crazy for having this pain in my arms. Pt frustrated that she doesn't have official answers on why her arms are painful and worries that doctors are kind of guessing. Pt acknowledges she has PTSD from past hospital stays from and [facility], and is seeing a therapist twice a month for this. Hospital Education Coordinator discussed options to help with anxiety. Pt denies pain being increased by anxiety and instead anxiety is because of the pain. Applied massage with lotion to bilat arms. Tender upon moderate pressure. Pt expressed gratefulness with massage, but no real relief. After reviewing provider notes and seeing rhabdomyolysis as potential cause of shoulder pain, underwriter mortgage loan printed education material for pt and reviewed signs, symptoms, and treatment. Also discussed stopping massage to area to prevent further tissue injury. Pt was satisfied and felt relief having some answers and can now know this is something that can be treated and there is a light at end of the tunnel. Pt seen walking ross with aid, with lifted spirits, pt smiling and speaking with staff in ross. Pt has questions and concerns about pain medication at discharge, and expresses fear about taking too many medications that can cause more damage. See teaching record.
[2022-12-23] VITALS: PULSE 105; RESP 20; O2SAT 97
[2022-12-23] MEDS: 0.9 % SODIUM CHLORIDE 1000 ml 1,000 ML 125 ML IV (02:38)
[2022-12-23 03:00] VITALS: BP 152/97; PULSE 101; O2SAT 97
[2022-12-23] MEDS: IBUPROFEN 600 MG TABLET PO ×2 (04:10→09:13)
--- NOTE | 2022-12-23 05:18 | PC.NURSE ---
Pt used nurse call button to notify nurse of increase in tightness of her hand . It was noted to be swollen. IVF stooped. [place] hospitalist notified and asked for order to dc IVf dc'd. hand put on pillow to elevate,
[2022-12-23 07:00] VITALS: BP 160/96; PULSE 94; RESP 20; TEMP 36.4; O2SAT 96; O2SAT 97
[2022-12-23 07:00] LABS: Ionized Calcium* 0.99 mmol/L (1.11-1.30)
[2022-12-23 07:17] LABS: Basophils Absolute Auto 0.03 K/uL (0.00-0.30); Basophils Percent Auto 0.3 % (0.0-3.0); Eosinophils Absolute Auto 0.17 K/uL (0.00-0.50); Eosinophils Percent Auto 1.9 % (0.0-7.0); Hematocrit 34.5 % (33.0-51.0); Hemoglobin* 11.3 gm/dL (12.0-16.0); Immature Granulocytes Abs Auto 0.03 K/uL (0.00-0.30); Immature Granulocytes Pct Auto 0.3 %; Lymphocytes Absolute Auto 2.08 K/uL (0.90-2.90); Lymphocytes Percent Auto 23.2 % (20-44); Mean Corpuscular HGB Conc 33 gm/dL (32-36); Mean Corpuscular Hemoglobin 30 pg (26-34); Mean Corpuscular Volume 92 fL (80-100); Monocytes Percent Auto 7.8 % (0.0-11.0); Neutrophils Absolute Auto 5.97 K/uL (1.7-7.0); Neutrophils Percent Auto 66.5 % (42.0-72.0); Platelet Count* 260 K/uL (140-440); RDW Coefficient of Variation % 13.4 % (11.5-15.5); Red Blood Count 3.77 m/uL (4.00-5.20); White Blood Count* 8.98 K/uL (4.50-11.00)
[2022-12-23 07:26] LABS: Chloride* 100 mmol/L (96-114); Potassium* 3.4 mmol/L (3.6-5.1); Sodium* 133 mmol/L (135-149)
[2022-12-23 07:28] LABS: Creatinine* 0.6 mg/dL (0.5-1.5); Est. Creatinine Clearance* 97.94; Estimated Glomerular Filt Rate 110 ml/min
[2022-12-23 07:29] LABS: Alanine Aminotransferase* 98 U/L (4-35); Alkaline Phosphatase* 54 U/L (40-150); Aspartate Amino Transferase* 277 U/L (12-35); Bilirubin Total* 0.4 mg/dL (0.1-1.5); Blood Urea Nitrogen* 10 mg/dL (5-24); Calcium* 7.5 mg/dL (8.4-10.6); Carbon Dioxide* 33 mmol/L (20-32); Glucose* 119 mg/dL (60-115)
[2022-12-23 07:30] LABS: Magnesium* 1.9 mg/dL (1.5-2.6)
[2022-12-23] MEDS: OMEPRAZOLE 20 MG CAPSULE DR 40 MG PO (07:44)
[2022-12-23 07:56] LABS: Slide Review Reflex No
[2022-12-23 08:00] VITALS: PULSE 94; RESP 20
[2022-12-23 08:02] LABS: Creatine Kinase* 16039 U/L (41-117)
--- NOTE | 2022-12-23 08:06 | PC.NURSE ---
END OF SHIFT NOTE: PT DENIES CP, SOB, N/V. C/O BILATERAL UPPER ARM PAIN RATES DISCOMFORT 04/06. AMBULATES INDEPENDENTLY. VSS ON RA; AFEBRILE. ABDOMINAL DRESSING IS C/D/I. RIGHT FOREARM IV DC?D. CALL LIGHT WITHIN PT?S REACH. UNEVENTFUL NIGHT.
[2022-12-23] MEDS: POTASSIUM BICARB 25 MEQ EFFERVESCENT TAB PO ×2 (09:12→10:18)
[2022-12-23] MEDS: LOSARTAN POTASSIUM 50 MG TABLET 25 MG PO (09:13)
[2022-12-23] MEDS: hydroCHLOROthiazide 25 MG TABLET PO (09:13)
[2022-12-23] MEDS: OXYCODONE 5 MG TABLET PO ×2 (09:13→13:30)
[2022-12-23 09:58] VITALS: BP 155/97; PULSE 101; RESP 20; TEMP 36.4
--- NOTE | 2022-12-23 10:18 | P.IMPN_ITS ---
Progress Note: A&P Assessment and plan (1) Elevated CK: Problem details: - likely source of arm pain, source unclear (iatrogenic from anesthesia vs idiopathic) - IVFs, continue to follow, improving subjectively and objectively - occupational therapy following for arm strengthening exercises - recommends outpatient OT upon d/c - patient also noted to have hypokalemia and hypocalcemia, able to replace orally Status: Acute (2) Elevated LFTs: Problem details: - noted on 12/21 labs. Asymptomatic, reassuring ultrasound, LFTs trended downward during stay - Marita endorses a history of fatty liver disease, still has her gallbladder Status: Acute (3) Upper extremity weakness: Problem details: - ddx includes rhabdo (elevated CK/LFTs), flare of peripheral neuropathy, potential cervical source (placement from surgery) - exam reassuring and symptoms improved during stay Status: Acute (4) Mild persistent asthma: Problem details: - follows with pulmonology as an outpatient, no evidence of acute exacerbation at this time Status: Acute (5) S/P total abdominal hysterectomy: Problem details: Treat fibroids and menometrorrhagia Status: Acute Plan - replace K and Ca orally - repeat electrolytes/LFTs/CK at postoperative f/u with Dr. Shyam Velazquez Subjective Date Seen: 12/23/22 Interval history: Marita is being followed by the hospitalist team as a postoperative consult for the Gynecologic surgery team. Patient continues to have some discomfort in her upper extremities, this continues to improve. She has been seen by Occupational therapy team. Her LFTs and CK continued to trend downward. She is tolerating p.o. intake and is ready for discharge home today. Exam Narrative: Exam Narrative: GEN: Alert and oriented, sitting comfortably in bedside chair and answering questions appropriately HEENT: EOMIs bilaterally, no scleral icterus CV: RRR (rate in the 90s during my exam), No concerning murmurs, rubs, or gallops R: LCTA bilaterally without concerning wheezing, air movement adequate Ext: Wearing SCDs, no concerning edema Skin: No concerning skin lesions or rashes on exposed skin Neuro: Normal peripheral pulses bilateral upper extremities with normal in symmetric bacteriologist industrial strength, gait appropriate Const: Vital Signs, click to edit/add: Vital Signs - 24 hr 12/22/22 11:00 12/22/22 15:00 12/22/22 15:00 Temperature 97.9 F 97.9 F Pulse Rate Pulse Rate [Pulse Oximeter] 100 99 Respiratory Rate 12 18 Blood Pressure Blood Pressure [Le ft Arm] 115/70 132/88 Pulse Oximetry 93 96 96 Oxygen Delivery Me thod Room Air Room Air Room Air Oxygen Flow Rate 0 0 12/22/22 19:00 12/23/22 03:00 12/23/22 00:00 Temperature Pulse Rate Pulse Rate [Pulse Oximeter] 105 H 101 H 105 H Respiratory Rate 20 Blood Pressure Blood Pressure [Le ft Arm] 154/94 H 152/97 H Pulse Oximetry 96 97 Oxygen Delivery Me thod Room Air Room Air Oxygen Flow Rate 12/23/22 00:00 12/23/22 07:00 12/23/22 07:00 Temperature 97.6 F Pulse Rate Pulse Rate [Pulse Oximeter] 94 Respiratory Rate 20 20 Blood Pressure Blood Pressure [Le ft Arm] 160/96 H Pulse Oximetry 97 96 97 Oxygen Delivery Me thod Room Air Room Air Room Air Oxygen Flow Rate 0 12/23/22 08:00 12/23/22 09:58 Temperature 97.6 F Pulse Rate 101 H Pulse Rate [Pulse Oximeter] 94 Respiratory Rate 20 20 Blood Pressure 155/97 H Blood Pressure [Le ft Arm] Pulse Oximetry Oxygen Delivery Me thod Oxygen Flow Rate Labs Labs: Laboratory Results - last 24 hr 12/23/22 12/23/22 12/23/22 06:44 06:44 06:44 WBC 8.98 RBC 3.77 L Hgb 11.3 L Hct 34.5 MCV 92 MCH 30 MCHC 33 RDW Coeff of [place] 13.4 Plt Count 260 Neut % (Auto) 66.5 Lymph % (Auto) 23.2 [place] % (Auto) 7.8 Eos % (Auto) 1.9 Baso % (Auto) 0.3 Neut # (Auto) 5.97 Lymph # (Auto) 2.08 [place] # (Auto) 0.70 Eos # (Auto) 0.17 Baso # (Auto) 0.03 Sodium 133 L Cancelled Potassium 3.4 L Cancelled Chloride 100 Carbon Dioxide BUN Creatinine Estimated Creat Clear Estimated GFR Glucose Calcium Ionized Calcium Todd Magnesium Total Bilirubin AST ALT Alkaline Phosphatase Total Creatine Kinase Total Protein Albumin 12/23/22 12/23/22 12/23/22 06:44 06:44 06:44 WBC RBC Hgb Hct MCV MCH MCHC RDW Coeff of [place] Plt Count Neut % (Auto) Lymph % (Auto) [place] % (Auto) Eos % (Auto) Baso % (Auto) Neut # (Auto) Lymph # (Auto) [place] # (Auto) Eos # (Auto) Baso # (Auto) Sodium Potassium Chloride Cancelled Carbon Dioxide 33 H Cancelled BUN 10 Cancelled Creatinine 0.6 Estimated Creat Clear Estimated GFR Glucose Calcium Ionized Calcium Todd Magnesium Total Bilirubin AST ALT Alkaline Phosphatase Total Creatine Kinase Total Protein Albumin 12/23/22 12/23/22 12/23/22 06:44 06:44 06:44 WBC RBC Hgb Hct MCV MCH MCHC RDW Coeff of [place] Plt Count Neut % (Auto) Lymph % (Auto) [place] % (Auto) Eos % (Auto) Baso % (Auto) Neut # (Auto) Lymph # (Auto) [place] # (Auto) Eos # (Auto) Baso # (Auto) Sodium Potassium Chloride Carbon Dioxide BUN Creatinine Cancelled Estimated Creat Clear 97.94 Cancelled Estimated GFR 110 Cancelled Glucose 119 H Calcium Ionized Calcium Todd Magnesium Total Bilirubin AST ALT Alkaline Phosphatase Total Creatine Kinase Total Protein Albumin 12/23/22 12/23/22 12/23/22 06:44 06:44 06:44 WBC RBC Hgb Hct MCV MCH MCHC RDW Coeff of [place] Plt Count Neut % (Auto) Lymph % (Auto) [place] % (Auto) Eos % (Auto) Baso % (Auto) Neut # (Auto) Lymph # (Auto) [place] # (Auto) Eos # (Auto) Baso # (Auto) Sodium Potassium Chloride Carbon Dioxide BUN Creatinine Estimated Creat Clear Estimated GFR Glucose Cancelled Calcium 7.5 L Cancelled Ionized Calcium Todd 0.99 L Magnesium 1.9 Total Bilirubin 0.4 Cancelled AST 277 H ALT Alkaline Phosphatase Total Creatine Kinase Total Protein Albumin 12/23/22 12/23/22 12/23/22 06:44 06:44 06:44 WBC RBC Hgb Hct MCV MCH MCHC RDW Coeff of [place] Plt Count Neut % (Auto) Lymph % (Auto) [place] % (Auto) Eos % (Auto) Baso % (Auto) Neut # (Auto) Lymph # (Auto) [place] # (Auto) Eos # (Auto) Baso # (Auto) Sodium Potassium Chloride Carbon Dioxide BUN Creatinine Estimated Creat Clear Estimated GFR Glucose Calcium Ionized Calcium Todd Magnesium Total Bilirubin AST Cancelled ALT 98 H Cancelled Alkaline Phosphatase 54 Cancelled Total Creatine Kinase 05183 H Total Protein Albumin 12/23/22 12/23/22 12/23/22 06:44 06:44 06:44 WBC RBC Hgb Hct MCV MCH MCHC RDW Coeff of [place] Plt Count Neut % (Auto) Lymph % (Auto) [place] % (Auto) Eos % (Auto) Baso % (Auto) Neut # (Auto) Lymph # (Auto) [place] # (Auto) Eos # (Auto) Baso # (Auto) Sodium Potassium Chloride Carbon Dioxide BUN Creatinine Estimated Creat Clear Estimated GFR Glucose Calcium Ionized Calcium Todd Magnesium Total Bilirubin AST ALT Alkaline Phosphatase Total Creatine Kinase Cancelled Total Protein 6.0 Cancelled Albumin 3.0 L Cancelled
[2022-12-23] MEDS: BUDESONIDE 0.5 MG/2ML NEB NEB (10:56)
[2022-12-23] MEDS: CYCLOBENZAPRINE HCL 10 MG TABLET PO (13:30)
--- NOTE | 2022-12-23 13:38 | PC.NURSE ---
Discharge Note: Patient and her had a lot of questions at the time of her discharge. Had Dr. Jacinto go back into room to see if she could answer their questions. Prior to her arrival patient was upset with me stating that I had not check on her in a while and that she needed some things. I was last in her room at 11 am and returned at 12:15. Asked if she had pushed her call light that she needed help and she had not. She was in need of more to wipes for her bottom and to get dressed. I got her wipes and then asked if i could help with anything else and she states No I will get dressed myself. I had Joleen from OT go in and see if she could help patient. We went through all her medications and her was present for the instructions. Answered all question and then got her pain medication to take before she left.
== END 2022-12-23 13:44 | disposition home or self-care (01) | DRG 742 ==
LOC: OB 16:38 → MEDSURG 18:16
PROVIDERS: Family Medicine; Admitting Provider Obstetrics & Gynecology; PCP Obstetrics & Gynecology; Visit Provider Obstetrics & Gynecology
PROC: 0UT94ZZ Resection of Uterus, Percutaneous Endoscopic Approach (ICD-10-PCS; CPT 52000; principal; 2022-12-20 10:00)
DX: D25.1 Intramural leiomyoma of uterus (principal); M62.82 Rhabdomyolysis; Z68.42 Body mass index [BMI] 45.0-49.9, adult; N92.1 Excessive and frequent menstruation with irregular cycle; N84.0 Polyp of corpus uteri; T88.59XA Other complications of anesthesia, initial encounter; T41.205A Adverse effect of unspecified general anesthetics, initial encounter; T41.3X5A Adverse effect of local anesthetics, initial encounter; M25.512 Pain in left shoulder; M25.511 Pain in right shoulder; E66.01 Morbid (severe) obesity due to excess calories; I10 Essential (primary) hypertension; J45.20 Mild intermittent asthma, uncomplicated; G62.9 Polyneuropathy, unspecified; R74.01 Elevation of levels of liver transaminase levels; F41.9 Anxiety disorder, unspecified; G47.30 Sleep apnea, unspecified; E83.51 Hypocalcemia; E87.6 Hypokalemia; K76.0 Fatty (change of) liver, not elsewhere classified; Z86.711 Personal history of pulmonary embolism; K21.9 Gastro-esophageal reflux disease without esophagitis
CPT/HCPCS: 00840; 36415; 76700; 76705; 76942; 80048; 80053; 80076; 81025; 82330; 82550; 82565; 83735; 84703; 85018; 85025; 86850; 86900; 86901; 88307; 94640; 97110; 97165; 97535; A9270; C9290; J0330; J0610; J0690; J1170; J1650; J1885; J2060; J2250; J2405; J2704; J3010; J3490; J7030; J7120; J7626